=== PATIENT | female | born 1955 | race Caucasian/White ===

== ENCOUNTER → 2017-05-17 | Outpatient (CLI) | payer MEDICARE, OTHER | LOC: KOH-I 09:22 | DX: M25.511 Pain in right shoulder (principal); M25.521 Pain in right elbow; M25.522 Pain in left elbow | CPT/HCPCS: 73030; 73080 ==

== ENCOUNTER → 2021-05-30 | Outpatient (CLI) | payer MEDICARE, OTHER ==
[~2021-05-30] MED LIST: DILTIAZEM 24HR120 M1 PO; FUROSEMIDE40 MG PO; HYDROCHLOROTHIA25 MG PO; HYDROCODON-ACE1 EAC4 PO; JARDIANCE10 MG PO; K-DUR TAB 20 M20 MEQ PO; LIPITOR TAB 2020 MG PO; MELOXICAM7.5 MG PO; NORTRIPTYLINE H25 MG PO; OMEPRAZOLE40 MG PO; PAROXETINE HCL10 MG PO; PRAMIPEXOLE D0.75 MG PO; PROTONIX 40 MG40 M1 PO
== END ==
LOC: LAB 14:06
DX: E11.9 Type 2 diabetes mellitus without complications (principal); E78.5 Hyperlipidemia, unspecified; I10 Essential (primary) hypertension; R00.2 Palpitations
CPT/HCPCS: 36415; 84443

== ENCOUNTER → 2021-06-01 | Outpatient (CLI) | payer MEDICARE, OTHER | LOC: HEART 5 13:30 | DX: R00.2 Palpitations (principal) ==

== ENCOUNTER 2022-05-27 17:20 | Emergency (ER) | payer MEDICARE, OTHER ==
[2022-05-27 18:57] LABS: HEMOGLOBIN 13.5 gm/dl (12.3-15.3); RED BLOOD COUNT 4.24 M/UL (4.00-5.10); WHITE BLOOD COUNT 6.7 K/UL (4.5-11.0)
[2022-05-27 20:29] LABS: BUN/CREATININE RATIO 12 (0-10)
[2022-05-27] MEDS ORDERED: OMNICEF 300 MG300 MG PO (20:51)
== END 2022-05-27 21:15 | disposition home or self-care (01) ==
LOC: ER1 17:20
PROVIDERS: Physician Assistant Medical
DX: E87.6 Hypokalemia (principal); N39.0 Urinary tract infection, site not specified; R51.9 Headache, unspecified; R21 Rash and other nonspecific skin eruption; R50.9 Fever, unspecified; E11.9 Type 2 diabetes mellitus without complications; I10 Essential (primary) hypertension; Z88.2 Allergy status to sulfonamides; Z79.899 Other long term (current) drug therapy; Z20.822 Contact with and (suspected) exposure to COVID-19
CPT/HCPCS: 0240U; 70450; 71045; 80053; 81001; 83605; 85025; 87086; 96374; 99284; J0780; J1200

== ENCOUNTER 2022-07-24 13:54 | Emergency (ER) | payer MEDICARE, OTHER ==
[~2022-07-24 13:54] MED LIST changes: +OMNICEF 300 MG300 MG PO
[2022-07-24 15:28] LABS: HEMOGLOBIN 13.4 gm/dl (12.3-15.3); RED BLOOD COUNT 4.23 M/UL (4.00-5.10); WHITE BLOOD COUNT 10.5 K/UL (4.5-11.0)
[2022-07-24 16:29] LABS: BUN/CREATININE RATIO 38 (0-10)
== END 2022-07-24 21:45 | disposition short-term general hospital (02) ==
LOC: ER1 13:54
PROVIDERS: Emergency Medicine
DX: K92.0 Hematemesis (principal); K62.5 Hemorrhage of anus and rectum; E87.5 Hyperkalemia; E11.9 Type 2 diabetes mellitus without complications; I10 Essential (primary) hypertension
CPT/HCPCS: 80053; 82962; 83690; 85025; 85610; 85730; 93005; 96361; 96374; 96375; 99285; C9113; J2405